=== PATIENT | female | born 1955 | race Two or more races ===

== ENCOUNTER 2024-11-01 10:38 | Inpatient (IN) | payer OTHER ==
[~2024-11-01] VITALS: Ht 162.6 cm; Wt 51.1 kg
--- NOTE | 2024-11-01 11:08 | ED.PDOC ---
History of Present Illness HPI Comments 69-year-old female brought by family states that she has been altered since yesterday. She has been feeling bad for the past one week. Today she is unable to even open her eyes. She has severe dementia. Usually walks with the assistance till yesterday. Since yesterday she is unable to even take a step. She does have a pacemaker in place. Family stated that she is DNR DNI. Want comfort measures. Chief Complaint: Failure to Thrive Time Seen by MD: 11:02 Reviewed Notes: Nurses Notes, Medications, Allergies Allergies: Coded Allergies: Penicillins (Verified Allergy, Severe, 11/01/24) Uncoded Allergies: VINEGAR (Allergy, Severe, 11/01/24) Information Source: Patient Mode of Arrival: Wheelchair Severity: Moderate Timing: Days Duration: Since onset Past Medical History PAST MEDICAL HISTORY: Dementia Surgical History: Denies all surgeries CYCLE COUNTER History: No Pertinent CYCLE COUNTER History Social History Smoker: Non-Smoker Alcohol: Denies ETOH Use Drugs: Denies Drug Use Unable to Obtain due to: Altered Mental Status Physical Exam General Appearance: Moderate Distress, Thin HEENT: Normal ENT Inspection, Pharynx Normal, TMs Normal Neck: Full Range of Motion, Non-Tender, Normal, Normal Inspection Respiratory: Chest Non-Tender, Lungs Clear, No Accessory Muscle Use, No Respiratory Distress, Normal Breath Sounds Cardiovascular: No Edema, No JVD, No Murmur, No Gallop, Normal Peripheral Pulses, Regular Rate/Rhythm Breast Exam: Deferred Gastrointestinal: No Organomegaly, Non Tender, No Pulsatile Mass, Normal Bowel Sounds, Soft Genitalia: Deferred Pelvic: Deferred Rectal: Deferred Extremities: No pedal edema Musculoskeletal : Apperance: Normal Neurologic: Disoriented Cerebellar Function: NOT DONE Reflexes: NOT DONE Skin: Pallor Peripheral Pulses: 3+ Radial (R), 3+ Radial (L) Lymphatic: No Adenopathy Was a procedure done? Was a procedure done?: No Differential Dx Considerations may include: Failure to thrive Electrolyte imbalance X-Ray, Labs, Meds, VS Vital Signs Date Time Temp Pulse Resp B/P (MAP) Pulse Ox O2 Delivery O2 Flow Rate FiO2 11/01/24 12:10 98.0 114 16 133/66 (88) 96 98.0 11/01/24 12:10 114 16 96 Room Air 11/01/24 10:54 95 11/01/24 10:39 98.0 93 15 96 98.0 Lab Test 11/01/24 11:43 Range/Units White Blood Count 8.0 4.4-10.8 10^3/uL Red Blood Count 4.11 4.0-5.20 10^6/uL Hemoglobin 13.5 12.2-16.2 g/dL Hematocrit 38.6 36.0-46.0 % Mean Corpuscular Volume 94.0 80.0-100.0 fL Mean Corpuscular Hemoglobin 33.0 H 28.0-32.0 pg Mean Corpuscular Hemoglobin Concent 35.1 32.0-36.0 g/dL Red Cell Distribution Width 13.0 11.8-14.3 % Platelet Count 197 140-450 10^3/uL Mean Platelet Volume 7.8 6.9-10.8 fL Neutrophils (%) (Auto) 74.0 37.0-80.0 % Lymphocytes (%) (Auto) 17.9 10.0-50.0 % Monocytes (%) (Auto) 7.5 0.0-12.0 % Eosinophils (%) (Auto) 0.1 0.0-7.0 % Basophils (%) (Auto) 0.5 0.0-2.0 % Neutrophils # (Auto) 5.9 1.6-8.6 10 ^3/uL Lymphocytes # (Auto) 1.4 0.4-5.4 10 ^3/uL Monocytes # (Auto) 0.6 0-1.3 10 ^3/uL Eosinophils # (Auto) 0 0-0.8 10 ^3/uL Basophils # (Auto) 0 0-0.2 10 ^3/uL Nucleated Red Blood Cells 0.0 % Prothrombin Time 10.4 9.3-11.8 sec Prothrombin Time INR 0.98 0.9-1.15 Activated Partial Thromboplast Time 24.1 L 24.5-34.5 SEC Sodium Level Pending Potassium Level Pending Chloride Level Pending Carbon Dioxide Level Pending Anion Gap Pending Blood Urea Nitrogen Pending Creatinine Pending Glomerular Filtration Rate Calc Pending BUN/Creatinine Ratio Pending Serum Glucose Pending Lactic Acid Level 2.0 0.4-2.0 mmol/L Calcium Level Pending Total Bilirubin Pending Aspartate Amino Transferase (AST) Pending Alanine Aminotransferase (ALT) Pending Alkaline Phosphatase Pending Troponin I High Sensitivity Pending Total Protein Pending Albumin Pending Patient altered. Dementia. Vitals stable. Chronic condition. Family members do not want anything heroic. DNI DNR. Establish intravenous access. Was given fluids. Sepsis protocol. Family at bedside. Continue monitoring. [place] [id number] Ph: [phone] DIAGNOSTIC IMAGING Diagnostic Imaging Report : [id number] Signed PATIENT: MYLES FERRARO ACCT: [id number] UNIT: [id number] : 1955 LOC: ER ROOM / BED: / AGE / SEX: 69 / F ADM STATUS: REG ER SERVICE 01 ORDERING PHYSICIAN: YARELIS LI MD PROCEDURE(s): CXRP - CHEST PORTABLE REASON: sob ORDER NUMBER(s): [id number], ACCESSION NUMBER(s): [id number] CHEST RADIOGRAPH Indication: sob Technique: Single frontal view of the chest was obtained Comparison: None FINDINGS: Lines and Tubes: Dual lead pacemaker in place with pulse generator over the left chest. Lungs: More[place] Airspace disease right lower lobe versus left hand. Pleura: No effusion. No pneumothorax. Cardiomediastinal contours: Unremarkable Bones: No acute osseous abnormality. IMPRESSION: 1. Superimposed over the lower lung medrano 2. Pacemaker in place HS:Y ATED BY: ADVID RAMOS Jr., DO DICTATED DATE/TIME: 11/01/24 113 SIGNED BY: DAVID RAMOS Jr., SIGNED DATE/TIME: 11/01/24 1133 CC: Time of 1ST Reevaluation: 11:05 Reevaluation 1ST: Unchanged Patient Education/Counseling: Pt Unresponsive Family Education/Counseling: Other (Comfort care) SEPSIS Sepsis Screen Date sepsis recognized/suspect: Nov 01, 2024 Time Sepsis recognized/suspect: 1042 Recent Procedure: No On Antibiotic Therapy: No Respiratory Rate >20: No Heart Rate >90: No Temp<36 C (96.8 F) or >38.3 C: No SBP <90 or MAP <65 mmHG: No New Acute Mental Status Change: No Is the patient on CPAP, BIPAP,: No Physician Orders Electrocardigram (11/01/24 11:00) Comprehensive Metabolic Panel (11/01/24 11:02) PTPTT (11/01/24 11:02) Urinalysis (11/01/24 11:02) Chest Portable (11/01/24 11:02) Accucheck (11/01/24 11:02) Blood Culture (11/01/24 11:02) Lactic Acid W/ Reflex Order (11/01/24 12:00) Cefepime 1gm/ 50ml (Maxipime 1gm/50ml) (11/01/24 14:00) Notify Md If Map <65 Or Bp<90 (11/01/24 11:02) If Map<65 Start Vasopressor (11/01/24 11:02) Sepsis Reassesment After Fluid (11/01/24 12:02) Sodium Chloride 0.9% (11/01/24 11:15) Troponin-I Hs (11/01/24 11:08) Electrocardigram (11/01/24 11:08) Vital Signs Date Time Temp Pulse Resp B/P (MAP) Pulse Ox O2 Delivery O2 Flow Rate FiO2 11/01/24 12:10 98.0 114 16 133/66 (88) 96 98.0 11/01/24 12:10 114 16 96 Room Air 11/01/24 10:54 95 11/01/24 10:39 98.0 93 15 96 98.0 Laboratory Tests Test 11/01/24 11:43 Lactic Acid Level 2.0 mmol/L (0.4-2.0) White Blood Count 8.0 10^3/uL (4.4-10.8) Departure 1 Departure Time of Disposition: 11:06 Impression: Primary Impression: Metabolic encephalopathy Additional Impressions: Sepsis, unspecified organism Qualified Codes: A41.9 - Sepsis, unspecified organism Failure to thrive Qualified Codes: R62.7 - Adult failure to thrive Disposition: ADMITTED INPATIENT Admit to: Med Surg Condition: Guarded Critical Care Note Critical Care Time?: Yes (90 min-critical care time only) Stability Stability form required: No Heart Score Heart Score: Heart Score Response (Comments) Value History Slightly Suspicious 0 EKG Normal 0 Age >65 2 Risk Factors >3 or Hx ASHD 2 Troponin Normal limit 0 Total 4 I personally scribed for YARELIS LI MD ([email or web address]) on 11/01/24 at 12:22. Electronically submitted by Estee Atkinson ([email or web address]). YARELIS LI MD Nov 01, 2024 11:08
--- NOTE | 2024-11-01 11:36 | DVH ---
CHEST RADIOGRAPH Indication: sob Technique: Single frontal view of the chest was obtained Comparison: None FINDINGS: Lines and Tubes: Dual lead pacemaker in place with pulse generator over the left chest. Lungs: Morelia Airspace disease right lower lobe versus left hand. Pleura: No effusion. No pneumothorax. Cardiomediastinal contours: Unremarkable Bones: No acute osseous abnormality. IMPRESSION: 1. Superimposed over the lower lung medrano 2. Pacemaker in place HS:Y
[2024-11-01 12:03] LABS: Hematocrit 38.6 % (36.0-46.0); Hemoglobin 13.5 g/dL (12.2-16.2); Mean Corpuscular Hemoglobin 33.0 pg (28.0-32.0); Mean Corpuscular Volume 94.0 fL (80.0-100.0); Nucleated Red Blood Cells % 0.0 %
[2024-11-01 12:18] LABS: INR 0.98 (0.9-1.15); Partial Thromboplastin Time 24.1 SEC (24.5-34.5); Prothrombin Time 10.4 sec (9.3-11.8)
[2024-11-01 12:20] LABS: Alanine Aminotransferase 37 U/L (7-40); Albumin 4.3 g/dL (3.2-4.8); Alkaline Phosphatase 49 U/L (46-116); Anion Gap 10 (5-15); BUN/Creatinine Ratio 16.5 (10.0-20.0); Blood Urea Nitrogen 15 mg/dL (9-23); Calcium 9.4 mg/dL (8.7-10.4); Carbon Dioxide 28 mmol/L (20-31); Chloride 102 mmol/L (98-107); Potassium 4.0 mmol/L (3.5-5.1); Sodium 140 mmol/L (136-145); Total Protein 6.7 g/dL (5.7-8.2)
[2024-11-01 12:21] LABS: Bilirubin, Total 0.4 mg/dL (0.2-1.0)
[2024-11-01 12:22] LABS: Glucose 205 mg/dL (74-106)
[2024-11-01] MEDS: SODIUM CHLORIDE 0.9% 1,000 ML IV ONE ×2 (12:29→13:28)
[2024-11-01] MEDS: VANCOMYCIN 1GM/200ML PM 200 ML IV ONE (12:32)
[2024-11-01] MEDS: CEFEPIME 1GM/ 50ML 50 ML IV SCH (13:27)
--- NOTE | 2024-11-01 18:42 | DVHHP2 ---
Admitting Diagnosis: Failure to thrive History of Present Illness 69-year-old female brought by family states that she has been altered since yesterday. She has been feeling bad for the past one week. Today she is unable to even open her eyes. She has severe dementia. Usually walks with the assistance till yesterday. Since yesterday she is unable to even take a step. She does have a pacemaker in place. Family stated that she is DNR DNI. Want comfort measures. PAST MEDICAL HISTORY: Dementia Surgical History: Denies all surgeries ELECTRONIC TESTER History: No Pertinent ELECTRONIC TESTER History Social History Smoker: Non-Smoker Alcohol: Denies ETOH Use Drugs: Denies Drug Use Allergies: Coded Allergies: Penicillins (Verified Allergy, Severe, 11/01/24) Uncoded Allergies: VINEGAR (Allergy, Severe, 11/01/24) Current Medications Current Medications Medications (Trade) Dose Ordered Sig/Ronald Route PRN Reason Start Time Stop Time Status Last Admin Cefepime HCl 50 ml @ 12.5 mls/hr Q12H IV 11/01/24 13:00 11/01/24 13:27 Vital Signs Vital Signs Date Time Temp Pulse Resp B/P (MAP) Pulse Ox O2 Delivery O2 Flow Rate FiO2 11/01/24 12:10 98.0 114 16 133/66 (88) 96 98.0 11/01/24 12:10 Room Air Physical Exam 69 years old woman, sitting on wheelchair. Head down. No apparent distress HEENT-atraumatic normocephalic Heart-regular rate and rhythm no with auscultate Abdomen soft, nontender nondistended Musculoskeletal-no edema cyanosis Neuro-asleep, not follow commands does not answer questions. SEPSIS Sepsis Screen Date sepsis recognized/suspect: Nov 01, 2024 Time Sepsis recognized/suspect: 1042 Recent Procedure: No On Antibiotic Therapy: No Respiratory Rate >20: No Heart Rate >90: No Temp<36 C (96.8 F) or >38.3 C: No SBP <90 or MAP <65 mmHG: No New Acute Mental Status Change: No Is the patient on CPAP, BIPAP,: No Physician Orders Electrocardigram (11/01/24 11:00) Urinalysis (11/01/24 11:02) Chest Portable (11/01/24 11:02) Accucheck (11/01/24 11:02) Blood Culture (11/01/24 11:02) Cefepime 1gm/ 50ml (Maxipime 1gm/50ml) (11/01/24 13:00) Notify Md If Map <65 Or Bp<90 (11/01/24 11:02) If Map<65 Start Vasopressor (11/01/24 11:02) Sepsis Reassesment After Fluid (11/01/24 12:02) Electrocardigram (11/01/24 11:08) Vital Signs Date Time Temp Pulse Resp B/P (MAP) Pulse Ox O2 Delivery O2 Flow Rate FiO2 11/01/24 12:10 98.0 114 16 133/66 (88) 96 98.0 11/01/24 12:10 114 16 96 Room Air 11/01/24 10:54 95 11/01/24 10:39 98.0 93 15 96 98.0 Laboratory Tests Test 11/01/24 11:43 Lactic Acid Level 2.0 mmol/L (0.4-2.0) White Blood Count 8.0 10^3/uL (4.4-10.8) Medications Medications Dose Ordered Sig/Ronald Route Start Time Stop Time Status Last Admin Dose Admin Cefepime HCl 50 ml @ 12.5 mls/hr Q12H IV 11/01/24 13:00 11/01/24 13:27 Sodium Chloride 1,000 ml @ 150 mls/hr Q6H40M ONCE IV 11/01/24 11:15 11/01/24 17:54 DC 11/01/24 13:28 Sodium Chloride 1,000 ml @ 1,000 mls/hr Q1H ONCE IV 11/01/24 11:15 11/01/24 12:14 DC 11/01/24 12:29 Vancomycin HCl 200 ml @ 200 mls/hr ONCE ONCE IV 11/01/24 11:15 11/01/24 12:14 DC 11/01/24 12:32 Results Labs Test 11/01/24 11:43 Range/Units White Blood Count 8.0 4.4-10.8 10^3/uL Red Blood Count 4.11 4.0-5.20 10^6/uL Hemoglobin 13.5 12.2-16.2 g/dL Hematocrit 38.6 36.0-46.0 % Mean Corpuscular Volume 94.0 80.0-100.0 fL Mean Corpuscular Hemoglobin 33.0 H 28.0-32.0 pg Mean Corpuscular Hemoglobin Concent 35.1 32.0-36.0 g/dL Red Cell Distribution Width 13.0 11.8-14.3 % Platelet Count 197 140-450 10^3/uL Mean Platelet Volume 7.8 6.9-10.8 fL Neutrophils (%) (Auto) 74.0 37.0-80.0 % Lymphocytes (%) (Auto) 17.9 10.0-50.0 % Monocytes (%) (Auto) 7.5 0.0-12.0 % Eosinophils (%) (Auto) 0.1 0.0-7.0 % Basophils (%) (Auto) 0.5 0.0-2.0 % Neutrophils # (Auto) 5.9 1.6-8.6 10 ^3/uL Lymphocytes # (Auto) 1.4 0.4-5.4 10 ^3/uL Monocytes # (Auto) 0.6 0-1.3 10 ^3/uL Eosinophils # (Auto) 0 0-0.8 10 ^3/uL Basophils # (Auto) 0 0-0.2 10 ^3/uL Nucleated Red Blood Cells 0.0 % Prothrombin Time 10.4 9.3-11.8 sec Prothrombin Time INR 0.98 0.9-1.15 Activated Partial Thromboplast Time 24.1 L 24.5-34.5 SEC Sodium Level 140 136-145 mmol/L Potassium Level 4.0 3.5-5.1 mmol/L Chloride Level 102 98-107 mmol/L Carbon Dioxide Level 28 20-31 mmol/L Anion Gap 10 5-15 Blood Urea Nitrogen 15 9-23 mg/dL Creatinine 0.91 0.550-1.02 mg/dL Glomerular Filtration Rate Calc 67 >90 mL/min BUN/Creatinine Ratio 16.5 10.0-20.0 Serum Glucose 205 H 74-106 mg/dL Lactic Acid Level 2.0 0.4-2.0 mmol/L Calcium Level 9.4 8.7-10.4 mg/dL Total Bilirubin 0.4 0.2-1.0 mg/dL Aspartate Amino Transferase (AST) 38 13-40 U/L Alanine Aminotransferase (ALT) 37 7-40 U/L Alkaline Phosphatase 49 46-116 U/L Troponin I High Sensitivity 3 L </=34 ng/L Total Protein 6.7 5.7-8.2 g/dL Albumin 4.3 3.2-4.8 g/dL Primary Diagnosis severe dementia Failure to thrive Plan Family wants comfort care. Start comfort care protocol No more blood draws case management assistant consult for comfort care DNI/DNR Plan discussed with: Patient Date of Service: Nov 01, 2024 Billing Provider: ALYSSIA APARICIO MD Common Visit Codes: [id number] INP/OBS CARE (MOD) ALYSSIA APARICIO MD Nov 01, 2024 18:42
[2024-11-01] MEDS ORDERED: LORazepam 0.5 MG TAB PO PRN (18:45)
[2024-11-01] MEDS ORDERED: ACETAMINOPHEN 325 MG TAB PO PRN (18:45)
[2024-11-01] MEDS ORDERED: BISACODYL 10 MG RECT SUPP PR PRN (18:45)
[2024-11-01] MEDS ORDERED: ONDANSETRON HCL 4 MG/2 ML VIAL IV PRN (18:45)
[2024-11-01] MEDS ORDERED: FLEET ENEMA(ADULT) 135 ML PR PRN (18:45)
[2024-11-01] MEDS ORDERED: HYDROmorphone HCL 2 MG/ML VL/or syr IV PRN (18:45)
[2024-11-01] MEDS: DOCUSATE SOD 100 MG CAP PO SCH (20:57)
[2024-11-01] MEDS: SODIUM CHLOR 0.9% PF (SALINE LOCK) 10ML VIAL/SYR IV SCH (20:57)
[2024-11-01 22:30] VITALS: BP 105/75; PULSE 90; RESP 15; TEMP 98; O2SAT 94
[2024-11-01 23:04] VITALS: BP 118/43; PULSE 66; RESP 15; TEMP 98.2; O2SAT 98
[2024-11-02] VITALS (7 sets, daily range): BP systolic 100–123; BP diastolic 43–59; PULSE 65–85; RESP 15–18; TEMP 97.7–98.5; O2SAT 96–100
--- NOTE | 2024-11-02 15:02 | DVHPN2 ---
Subjective Patient encephalopathic Reviewed: Care Plan, H&P, Labs, Medications Changes from previous H/P or p: No Changes General: Per HPI Objective Vitals Vital Signs Date Time Temp Pulse Resp B/P (MAP) Pulse Ox O2 Delivery O2 Flow Rate FiO2 11/02/24 12:59 98.5 74 16 122/49 (73) 100 98.5 11/02/24 08:00 Room Air* 0 21 Intake/Output Intake and Output 11/02/24 07:00 Intake Total 0 ml Balance 0 ml Intake Oral 0 ml General Appearance: mild distress, Other (Unable to assess) HEENT: Atraumatic, PERRLA Neck: Carotid Bruits [place] Lungs: Other (Rhonchi in right lower lobe) Cardiovascular: Normal S1, Normal S2 Abdomen: Normal bowel sounds, Soft, No tenderness Musculoskeletal: Normal sensory function, Normal motor function Extremities: No clubbing, No cyanosis, No edema, Normal pulses, Other (Swelling to left hand) Neuro: Other (Unable to assess) Psych/Mental Status: Other (Unable to assess) Medications Current Medications Medications Dose Ordered Sig/Ronald Route Start Time Stop Time Status Last Admin Dose Admin Cefepime HCl 50 ml @ 12.5 mls/hr Q12H IV 11/01/24 13:00 11/01/24 21:39 12.5 MLS/HR Acetaminophen 325 mg Q6HP PRN PO 11/01/24 18:45 Hydromorphone HCl 1 mg Q1HP PRN IV 11/01/24 18:45 Docusate Sodium 100 mg Q12HR PO 11/01/24 22:00 Bisacodyl 10 mg QHSP PRN IL 11/01/24 18:45 Sodium Biphosphate/ Sodium Phosphate 135 ml DAILYP PRN IL 11/01/24 18:45 Ondansetron HCl 4 mg Q4HP PRN IV 11/01/24 18:45 Sodium Chloride 10 ml Q8HR IV 11/01/24 22:00 11/02/24 12:34 10 ML Amlodipine Besylate 5 mg DAILY PO 11/02/24 10:00 Pravastatin Sodium 10 mg HS PO 11/02/24 22:00 Sodium Chloride 1,000 ml @ 75 mls/hr [id number] IV 11/02/24 15:00 UNV Laboratory Results Laboratory Tests 11/01/24 11:43 Microbiology Microbiology Date/Time Source Procedure Growth Status 11/01/24 11:50 Blood Blood Culture - Preliminary NO GROWTH AFTER 24 HOURS OF INCUBATION. Resulted Labs and/or images reviewed: Labs reviewed by me, Image(s) reviewed by me Assessment/Plan Assessment/Plan Impression: -failure to thrive -advanced Alzheimer's disease -rule out rhabdomyolysis -rule out aspiration pneumonitis/pneumonia Plan: -CT scan of head and chest -continue empiric antibiotic therapy -check ESR, CRP, CPK, vitamin-D, B1, thiamine -aspiration precaution -long discussion made with the patient's who was bedside. All questions answered. -code status: DNR Total time spent with patient discussing and formulating plan of care: 35 minutes. Total time spent with patient and family regarding advance care plannin minutes. This medical document was created using an electronic medical record system with bas[employer]ation system. Although this document has been carefully reviewed, there may still be some phonetic and typographical errors. These areas are purely typographical due to imperfections of the software programs, and do not reflect any compromise in the patient's medical care. Plan discussed with: Patient, Other (RN) My Orders Orders - JESSIE RIVERA NP Procedure Category Date Status Time Comprehensive LAB 11/02/24 Logged Metabolic Panel 14:48 Vitamin B1 (Thiamine) LAB 11/02/24 Logged 14:48 Vitamin B12 LAB 11/02/24 Logged 14:48 Vitamin D 25-Hydroxy LAB 11/02/24 Logged D2 + D3 14:48 Sodium Chloride 0.9% PHA 11/02/24 Logged 15:00 C-Reactive Protein LAB 11/02/24 Logged 14:48 Creatine Kinase LAB 11/02/24 Logged 14:48 Erythrocyte LAB 11/02/24 Logged Sedimentation Rate 14:48 Cigarette Seller To Assess ORDERS 11/02/24 Transmitted Pacemaker 14:48 Hemoglobin A1c LAB 11/02/24 Logged 14:[address] 11/02/24 Logged 14:[address] 11/02/24 Logged 14:48 Date of Service: Nov 02, 2024 Billing Provider: JESSIE RIVERA NP Common Visit Codes: [id number] INP/OBS CARE(HIGH) JESSIE RIVERA NP Nov 02, 2024 15:02
[2024-11-02 15:39] LABS: Albumin 4.0 g/dL (3.2-4.8); Anion Gap 8 (5-15); BUN/Creatinine Ratio 21.7 (10.0-20.0); Bilirubin, Total 0.3 mg/dL (0.2-1.0); Blood Urea Nitrogen 18 mg/dL (9-23); Calcium 9.0 mg/dL (8.7-10.4); Carbon Dioxide 30 mmol/L (20-31); Chloride 107 mmol/L (98-107); Potassium 3.7 mmol/L (3.5-5.1); Sodium 145 mmol/L (136-145); Total Protein 6.3 g/dL (5.7-8.2)
[2024-11-02 15:56] LABS: Alanine Aminotransferase 41 U/L (7-40); Alkaline Phosphatase 46 U/L (46-116); Creatine Kinase IFCC 2211 U/L (34-145); Glucose 125 mg/dL (74-106)
[2024-11-02] MEDS: SODIUM CHLORIDE 0.9% 1,000 ML IV SCH (17:01)
--- NOTE | 2024-11-02 17:46 | DVH ---
CT HEAD WITHOUT CONTRAST Indication: aloc EXAM DATE: 11/02/2024 03:24 PM COMPARISON: None TECHNIQUE: CT of the head without intravenous contrast. RADIATION DOSE: CTDIvol: 5.1 mGy, DLP: 1525 mGy*cm FINDINGS: There is no intracranial hemorrhage. There is no extra-axial fluid, mass, mass effect or midline shif t. The ventricles are midline and prominent in size. Basilar cisterns are patent. Moderate to advance d periventricular and subcortical white matter chronic microvascular ischemic changes. Moderate volu me loss Mastoids well pneumatized. Mucosal thickening of the right maxillary sinus.. Imaged portion of the or bits are unremarkable. IMPRESSION: No intracranial hemorrhage or mass effect. Moderate chronic microvascular ischemic changes. Moderate global cerebral volume loss. Prominent ventricular size which can be secondary to underlying cerebral volume loss, normal pressure hydrocephalus. Correlate clinically.
--- NOTE | 2024-11-02 18:41 | DVH ---
Indication: aspiration pna Technique: CT axial images of the chest are obtained without contrast. Coronal and sagittal reformats were obtained. Radiation Dose Information: CTDI volume is 61.38 mGy. Dose-length product is 4.54 mGy*cm Comparison: XY CHEST PORTABLE on DOS: 11/01/24 FINDINGS: Trachea patent. No pneumothorax. No pleural effusion. Left upper lobe ground-glass nodule measuring 6 mm. Heart normal in size. Tiny pericardial effusion. Aortic atherosclerotic disease. No supraclavicular /axillary lymphadenopathy. Marked/ severe gastric distention. Cholelithiasis. No aggressive osseous process. Moderate thoracic degenerative disc disease. Thoracic levocurvature. IMPRESSION: Limited evaluation without contrast. No pulmonary airspace consolidation. 6 mm left upper lobe ground-glass nodule. Recommend follow-up per Fleischner society criteria. Marked/ severe gastric distention, incompletely characterized. Recommend CT abdomen pelvis to evalua te. Cholelithiasis. Other findings as described
[2024-11-02] MEDS: PRAVASTATIN SODIUM 20 MG TAB PO SCH (20:51)
[2024-11-03] VITALS (8 sets, daily range): BP systolic 114–135; BP diastolic 42–87; PULSE 66–87; RESP 16–19; TEMP 97–98.9; O2SAT 96–100
--- NOTE | 2024-11-03 06:35 | ECG ---
[facility] Test Date: 2024-11-01 Test Time: 10:54:55 Pat Name: MYLES FERRARO Department: ED Room: 0250T Gender: F Finisher Plate: JOHNIE : 1955 Requested By: YARELIS LI Order Number: [id number] Reading MD: Epi Burks Measurements Intervals [place] Rate: 95 P: 73 UT: 121 QRS: -58 QRSD: 74 T: 59 QT: 332 QTc: 418 Interpretive Statements Sinus rhythm Consider right atrial enlargement Left anterior fascicular block Borderline low voltage, extremity leads Consider anterior infarct Electronically Signed On 11-09-2024 17:15:05 PDT by Epi Burks Please click the below link to view image of tracing.
[2024-11-03] MEDS: SODIUM CHLORIDE 0.9% 1,000 ML IV SCH (09:00)
[2024-11-03] MEDS: FLEET ENEMA(ADULT) 135 ML PR ONE (09:00)
--- NOTE | 2024-11-03 13:23 | DVHPN2 ---
Subjective Patient encephalopathic Reviewed: Care Plan, H&P, Labs, Medications Changes from previous H/P or p: No Changes General: Per HPI Objective Vitals Vital Signs Date Time Temp Pulse Resp B/P (MAP) Pulse Ox O2 Delivery O2 Flow Rate FiO2 11/03/24 09:30 168/92 11/03/24 05:10 98.2 71 16 99 98.2 11/02/24 20:00 Room Air* 0 21 Intake/Output Intake and Output 11/03/24 07:00 Intake Total 1155 ml Balance 1155 ml Intake Oral 1105 ml IV Total 50 ml # Voids 5 General Appearance: Alert, mild distress, Other (Unable to assess) HEENT: Atraumatic, PERRLA Neck: Carotid Bruits [place] Lungs: Other (Rhonchi in right lower lobe) Cardiovascular: Normal S1, Normal S2 Abdomen: Normal bowel sounds, Soft, No tenderness Musculoskeletal: Normal sensory function, Normal motor function Extremities: No clubbing, No cyanosis, No edema, Normal pulses, Other (Swelling to left hand) Neuro: Other (Unable to assess) Skin: Dry, Intact Psych/Mental Status: Other (Unable to assess) Medications Current Medications Medications Dose Ordered Sig/Ronald Route Start Time Stop Time Status Last Admin Dose Admin Cefepime HCl 50 ml @ 12.5 mls/hr Q12H IV 11/01/24 13:00 11/03/24 00:40 12.5 MLS/HR Acetaminophen 325 mg Q6HP PRN PO 11/01/24 18:45 Hydromorphone HCl 1 mg Q1HP PRN IV 11/01/24 18:45 Docusate Sodium 100 mg Q12HR PO 11/01/24 22:00 11/03/24 09:30 100 MG Bisacodyl 10 mg QHSP PRN MI 11/01/24 18:45 Sodium Biphosphate/ Sodium Phosphate 135 ml DAILYP PRN MI 11/01/24 18:45 Ondansetron HCl 4 mg Q4HP PRN IV 11/01/24 18:45 Sodium Chloride 10 ml Q8HR IV 11/01/24 22:00 11/03/24 06:08 10 ML Amlodipine Besylate 5 mg DAILY PO 11/02/24 10:00 11/03/24 09:30 5 MG Pravastatin Sodium 10 mg HS PO 11/02/24 22:00 Sodium Chloride 1,000 ml @ 100 mls/hr Q10H IV 11/03/24 08:45 Laboratory Results Laboratory Tests 11/01/24 11:43 11/02/24 15:02 Chemistry Test 11/02/24 15:02 Albumin 4.0 g/dL (3.2-4.8) Calcium Level 9.0 mg/dL (8.7-10.4) Total Protein 6.3 g/dL (5.7-8.2) LFT Test 11/02/24 15:02 Alanine Aminotransferase (ALT) 41 U/L (7-40) H Alkaline Phosphatase 46 U/L (46-116) Aspartate Amino Transferase (AST) 72 U/L (13-40) H Total Bilirubin 0.3 mg/dL (0.2-1.0) HgA1c, TSH Test 11/02/24 15:02 Hemoglobin A1c 6.1 % A1C (<5.7) H Microbiology Microbiology Date/Time Source Procedure Growth Status 11/01/24 11:50 Blood Blood Culture - Preliminary NO GROWTH AFTER 48 HOURS OF INCUBATION. Resulted Labs and/or images reviewed: Labs reviewed by me, Image(s) reviewed by me Assessment/Plan Assessment/Plan Impression: -failure to thrive -advanced Alzheimer's disease -rhabdomyolysis -rule out aspiration pneumonitis/pneumonia, ruled out -metabolic encephalopathy Plan: Events: Patient more alert today. -CT scan of head and chest reviewed : Discussed findings with -continue empiric antibiotic therapy -increase IV hydration given rhabdomyolysis -aspiration precaution -long discussion made with the patient's who was bedside. All questions answered. -code status: DNR -social service consultation for discharge planning. Patient's states that he spoke with [facility] who states that patient can qualify for a retirement facility under [facility]. Total time spent with patient discussing and formulating plan of care: 35 minutes. This medical document was created using an electronic medical record system with [employer] system. Although this document has been carefully reviewed, there may still be some phonetic and typographical errors. These areas are purely typographical due to imperfections of the software programs, and do not reflect any compromise in the patient's medical care. Plan discussed with: Patient, Other (RN) My Orders Orders - JESSIE RIVERA MACHINE CEMENTER AND FOLDER Procedure Category Date Status Time Vitamin B1 (Thiamine) LAB 11/02/24 In Process 14:48 Vitamin D 25-Hydroxy LAB 11/02/24 In Process D2 + D3 14:48 Traffic Survey Technician To Assess ORDERS 11/02/24 Transmitted Pacemaker 14:[address] 11/02/24 Resulted 14:[address] 11/02/24 Resulted 14:48 Sodium Chloride 0.9% PHA 11/03/24 In Process 08:45 Date of Service: Nov 03, 2024 Billing Provider: JESSIE RIVERA NP Common Visit Codes: [id number] INP/OBS CARE(HIGH) JESSIE RIVERA NP Nov 03, 2024 13:23
[2024-11-04] VITALS (7 sets, daily range): BP systolic 113–159; BP diastolic 57–95; PULSE 60–90; RESP 16–18; TEMP 98–98.9; O2SAT 96–99
[2024-11-04 07:47] LABS: Potassium 4.0 mmol/L (3.5-5.1); Sodium 140 mmol/L (136-145)
[2024-11-04 07:48] LABS: Anion Gap 10 (5-15); Carbon Dioxide 21 mmol/L (20-31)
[2024-11-04 07:54] LABS: BUN/Creatinine Ratio 30.1 (10.0-20.0); Blood Urea Nitrogen 22 mg/dL (9-23)
[2024-11-04 07:59] LABS: Calcium 8.5 mg/dL (8.7-10.4); Chloride 109 mmol/L (98-107); Creatine Kinase IFCC 1216 U/L (34-145); Glucose 135 mg/dL (74-106)
--- NOTE | 2024-11-04 09:43 | DVHPN2 ---
Subjective Patient encephalopathic Reviewed: Care Plan, H&P, Labs, Medications Changes from previous H/P or p: No Changes General: Per HPI Objective Vitals Vital Signs Date Time Temp Pulse Resp B/P (MAP) Pulse Ox O2 Delivery O2 Flow Rate FiO2 11/04/24 08:00 Room Air* 0 21 11/04/24 05:00 98.0 60 16 136/82 (100) 99 98.0 Intake/Output Intake and Output 11/04/24 07:00 Intake Total 1170 ml Balance 1170 ml Intake Oral 1120 ml IV Total 50 ml # Voids 8 General Appearance: Alert, mild distress, Other (Unable to assess) HEENT: Atraumatic, PERRLA Neck: Carotid [place]its [place] Lungs: Other (Rhonchi in right lower lobe) Cardiovascular: Normal S1, Normal S2 Abdomen: Normal bowel sounds, Soft, No tenderness Musculoskeletal: Normal sensory function, Normal motor function Extremities: No clubbing, No cyanosis, No edema, Normal pulses, Other (Swelling to left hand) Neuro: Other (Unable to assess) Skin: Dry, Intact Psych/Mental Status: Other (Unable to assess) Medications Current Medications Medications Dose Ordered Sig/Ronald Route Start Time Stop Time Status Last Admin Dose Admin Cefepime HCl 50 ml @ 12.5 mls/hr Q12H IV 11/01/24 13:00 11/04/24 00:56 12.5 MLS/HR Acetaminophen 325 mg Q6HP PRN PO 11/01/24 18:45 Hydromorphone HCl 1 mg Q1HP PRN IV 11/01/24 18:45 Docusate Sodium 100 mg Q12HR PO 11/01/24 22:00 11/03/24 21:54 100 MG Bisacodyl 10 mg QHSP PRN [place] 11/01/24 18:45 Sodium Biphosphate/ Sodium Phosphate 135 ml DAILYP PRN [place] 11/01/24 18:45 Ondansetron HCl 4 mg Q4HP PRN IV 11/01/24 18:45 Sodium Chloride 10 ml Q8HR IV 11/01/24 22:00 11/04/24 06:21 10 ML Amlodipine Besylate 5 mg DAILY PO 11/02/24 10:00 11/03/24 09:30 5 MG Pravastatin Sodium 10 mg HS PO 11/02/24 22:00 11/03/24 21:53 10 MG Sodium Chloride 1,000 ml @ 100 mls/hr Q10H IV 11/03/24 08:45 11/03/24 18:20 100 MLS/HR Laboratory Results Laboratory Tests 11/01/24 11:43 11/04/24 06:39 Chemistry Test 11/04/24 06:39 Calcium Level 8.5 mg/dL (8.7-10.4) L Microbiology Microbiology Date/Time Source Procedure Growth Status 11/01/24 11:50 Blood Blood Culture - Preliminary NO GROWTH AFTER 48 HOURS OF INCUBATION. Resulted Labs and/or images reviewed: Labs reviewed by me, Image(s) reviewed by me Assessment/Plan Assessment/Plan Impression: -failure to thrive -advanced Alzheimer's disease -rhabdomyolysis -rule out aspiration pneumonitis/pneumonia, ruled out -metabolic encephalopathy Plan: Events: Patient more alert today. Rhabdomyolysis improving -CT scan of head and chest reviewed : Discussed findings with -continue empiric antibiotic therapy -decrease IV fluids -physical therapy consultation -social service consultation for DC planning Total time spent with patient discussing and formulating plan of care: 35 minutes. This medical document was created using an electronic medical record system with [employer] dictation system. Although this document has been carefully reviewed, there may still be some phonetic and typographical errors. These areas are purely typographical due to imperfections of the software programs, and do not reflect any compromise in the patient's medical care. Plan discussed with: Patient, Spouse, Other (RN) My Orders Orders - JESSIE RIVEAR NP Procedure Category Date Status Time * Outside Physical Damage Appraiser CONS 11/03/24 Transmitted Consult Code Status CODE 11/03/24 Transmitted 13:23 NS PHA 11/04/24 Transmitted 09:45 Pt Request For Service PT 11/04/24 Transmitted 09:38 Date of Service: Nov 04, 2024 Billing Provider: JSESIE RIVERA NP Common Visit Codes: [id number] INP/OBS CARE(HIGH) JESSIE RIVERA NP Nov 04, 2024 09:43
[2024-11-04] MEDS: SODIUM CHLORIDE 0.9% 1,000 ML IV SCH (09:49)
[2024-11-05] VITALS (7 sets, daily range): BP systolic 104–117; BP diastolic 48–68; PULSE 60–74; RESP 14–18; TEMP 97.9–98.1; O2SAT 95–98
--- NOTE | 2024-11-05 13:20 | DVHPN2 ---
Subjective Patient encephalopathic Reviewed: Care Plan, H&P, Labs, Medications Changes from previous H/P or p: No Changes General: Per HPI Objective Vitals Vital Signs Date Time Temp Pulse Resp B/P (MAP) Pulse Ox O2 Delivery O2 Flow Rate FiO2 11/05/24 10:02 116/64 11/05/24 08:30 70 14 98 11/05/24 08:00 Room Air* 0 21 11/05/24 01:00 98.1 98.1 Intake/Output Intake and Output 11/05/24 07:00 Intake Total 905 ml Output Total 4 ml Balance 901 ml Intake Oral 855 ml IV Total 50 ml Output Urine Total 4 ml # Voids 2 # Bowel Movements 2 General Appearance: Alert, mild distress, Other (Unable to assess) HEENT: Atraumatic, PERRLA Neck: Carotid Bruits [place] Lungs: Other (Rhonchi in right lower lobe) Cardiovascular: Normal S1, Normal S2 Abdomen: Normal bowel sounds, Soft, No tenderness Musculoskeletal: Normal sensory function, Normal motor function Extremities: No clubbing, No cyanosis, No edema, Normal pulses, Other (Swelling to left hand) Neuro: Other (Unable to assess) Skin: Dry, Intact Psych/Mental Status: Other (Unable to assess) Medications Current Medications Medications Dose Ordered Sig/Ronald Route Start Time Stop Time Status Last Admin Dose Admin Cefepime HCl 50 ml @ 12.5 mls/hr Q12H IV 11/01/24 13:00 11/05/24 01:47 12.5 MLS/HR Acetaminophen 325 mg Q6HP PRN PO 11/01/24 18:45 Hydromorphone HCl 1 mg Q1HP PRN IV 11/01/24 18:45 Docusate Sodium 100 mg Q12HR PO 11/01/24 22:00 11/05/24 10:01 100 MG Bisacodyl 10 mg QHSP PRN [place] 11/01/24 18:45 Sodium Biphosphate/ Sodium Phosphate 135 ml DAILYP PRN [place] 11/01/24 18:45 Ondansetron HCl 4 mg Q4HP PRN IV 11/01/24 18:45 Sodium Chloride 10 ml Q8HR IV 11/01/24 22:00 11/05/24 05:56 10 ML Amlodipine Besylate 5 mg DAILY PO 11/02/24 10:00 11/05/24 10:02 5 MG Pravastatin Sodium 10 mg HS PO 11/02/24 22:00 11/04/24 23:04 10 MG Sodium Chloride 1,000 ml @ 50 mls/hr Q20H IV 11/04/24 09:45 11/05/24 05:56 50 MLS/HR Laboratory Results Laboratory Tests 11/01/24 11:43 11/04/24 06:39 Microbiology Microbiology Date/Time Source Procedure Growth Status 11/01/24 11:50 Blood Blood Culture - Preliminary NO GROWTH AFTER 72 HOURS OF INCUBATION. Resulted Labs and/or images reviewed: Labs reviewed by me, Image(s) reviewed by me Assessment/Plan Assessment/Plan Impression: -failure to thrive -advanced Alzheimer's disease -rhabdomyolysis -rule out aspiration pneumonitis/pneumonia, ruled out -metabolic encephalopathy Plan: Events: Patient more alert today. Out of bed with physical therapy -CT scan of head and chest reviewed : Discussed findings with -continue empiric antibiotic therapy -decrease IV fluids -physical therapy consultation -plan of care discussed with the patient's has been, time. He is awaiting to hear back from the pace program to have placed in Alzheimer facility in [facility]. Total time spent with patient discussing and formulating plan of care: 35 minutes. This medical document was created using an electronic medical record system with [employer] dictation system. Although this document has been carefully reviewed, there may still be some phonetic and typographical errors. These areas are purely typographical due to imperfections of the software programs, and do not reflect any compromise in the patient's medical care. Plan discussed with: Patient, Spouse, Other (RN) Date of Service: Nov 05, 2024 Billing Provider: JESSIE RIVERA NP Common Visit Codes: [id number] INP/OBS CARE(HIGH) JESSIE RIVERA NP Nov 05, 2024 13:20
[2024-11-05 22:07] LABS: Vitamin D-2 25-Hydroxy <1.0 ng/mL (.); Vitamin D-3 25-Hydroxy 25 ng/mL (.)
[2024-11-06] VITALS (8 sets, daily range): BP systolic 99–121; BP diastolic 49–73; PULSE 64–103; RESP 16–19; TEMP 97.7–98.3; O2SAT 95–100
--- NOTE | 2024-11-06 14:15 | DVHPN2 ---
Subjective Patient encephalopathic Reviewed: Care Plan, H&P, Labs, Medications Changes from previous H/P or p: No Changes General: Per HPI Objective Vitals Vital Signs Date Time Temp Pulse Resp B/P (MAP) Pulse Ox O2 Delivery O2 Flow Rate FiO2 11/06/24 13:00 98.1 64 17 99/49 (66) 100 98.1 11/05/24 20:00 Room Air* 0 21 Intake/Output Intake and Output 11/06/24 07:00 Intake Total 420 ml Balance 420 ml Intake Oral 370 ml IV Total 50 ml # Voids 8 # Bowel Movements 1 General Appearance: Alert, mild distress, Other (Unable to assess) HEENT: Atraumatic, PERRLA Neck: Carotid Bruits [place] Lungs: Other (Rhonchi in right lower lobe) Cardiovascular: Normal S1, Normal S2 Abdomen: Normal bowel sounds, Soft, No tenderness Musculoskeletal: Normal sensory function, Normal motor function Extremities: No clubbing, No cyanosis, No edema, Normal pulses, Other (Swelling to left hand) Neuro: Other (Unable to assess) Skin: Dry, Intact Psych/Mental Status: Other (Unable to assess) Medications Current Medications Medications Dose Ordered Sig/Ronald Route Start Time Stop Time Status Last Admin Dose Admin Cefepime HCl 50 ml @ 12.5 mls/hr Q12H IV 11/01/24 13:00 11/06/24 12:53 12.5 MLS/HR Acetaminophen 325 mg Q6HP PRN PO 11/01/24 18:45 Hydromorphone HCl 1 mg Q1HP PRN IV 11/01/24 18:45 Docusate Sodium 100 mg Q12HR PO 11/01/24 22:00 11/06/24 10:58 100 MG Bisacodyl 10 mg QHSP PRN [place] 11/01/24 18:45 Sodium Biphosphate/ Sodium Phosphate 135 ml DAILYP PRN [place] 11/01/24 18:45 Ondansetron HCl 4 mg Q4HP PRN IV 11/01/24 18:45 Sodium Chloride 10 ml Q8HR IV 11/01/24 22:00 11/06/24 05:54 10 ML Amlodipine Besylate 5 mg DAILY PO 11/02/24 10:00 11/06/24 10:58 5 MG Pravastatin Sodium 10 mg HS PO 11/02/24 22:00 11/05/24 21:59 10 MG Laboratory Results Laboratory Tests 11/01/24 11:43 11/04/24 06:39 Microbiology Microbiology Date/Time Source Procedure Growth Status 11/01/24 11:50 Blood Blood Culture - Final NO GROWTH AFTER 5 DAYS OF INCUBATION. Complete Labs and/or images reviewed: Labs reviewed by me, Image(s) reviewed by me Assessment/Plan Assessment/Plan Impression: -failure to thrive -advanced Alzheimer's disease -rhabdomyolysis -rule out aspiration pneumonitis/pneumonia, ruled out -metabolic encephalopathy Plan: Events: Discussed plan of care with the patient's . Patient currently not ambulating, noted to be her baseline status. Patient is able to stand and bear weight on side of the bed. Neurologically patient has improved. Repeat BMP, CPK, CBC -CT scan of head and chest reviewed : Discussed findings with -continue empiric antibiotic therapy -decrease IV fluids -physical therapy consultation -plan of care discussed with the patient's has been, time. He is awaiting to hear back from the pace program to have placed in Alzheimer facility in [facility]. Total time spent with patient discussing and formulating plan of care: 35 minutes. This medical document was created using an electronic medical record system with [employer] dictation system. Although this document has been carefully reviewed, there may still be some phonetic and typographical errors. These areas are purely typographical due to imperfections of the software programs, and do not reflect any compromise in the patient's medical care. Plan discussed with: Patient, Other (RN) Date of Service: Nov 06, 2024 Billing Provider: JESSIE RIVERA NP Common Visit Codes: [id number] INP/OBS CARE(HIGH) JESSIE RIVERA NP Nov 06, 2024 14:15
[2024-11-06 15:26] LABS: Hematocrit 37.0 % (36.0-46.0); Hemoglobin 12.9 g/dL (12.2-16.2); Mean Corpuscular Hemoglobin 33.0 pg (28.0-32.0); Mean Corpuscular Volume 94.5 fL (80.0-100.0); Nucleated Red Blood Cells % 0.1 %
[2024-11-06 15:31] LABS: Chloride 106 mmol/L (98-107); Potassium 4.1 mmol/L (3.5-5.1); Sodium 141 mmol/L (136-145)
[2024-11-06 15:32] LABS: Anion Gap 8 (5-15); Calcium 9.2 mg/dL (8.7-10.4); Carbon Dioxide 27 mmol/L (20-31)
[2024-11-06 15:37] LABS: BUN/Creatinine Ratio 23.7 (10.0-20.0); Blood Urea Nitrogen 18 mg/dL (9-23); Glucose 137 mg/dL (74-106)
[2024-11-06 15:40] LABS: Creatine Kinase IFCC 308 U/L (34-145)
[2024-11-07] VITALS (8 sets, daily range): BP systolic 103–131; BP diastolic 56–69; PULSE 60–77; RESP 15–18; TEMP 98–98.6; O2SAT 95–100
[2024-11-07 01:07] LABS: Vitamin B1, Whole Blood 115.2 nmol/L (66.5-200.0)
--- NOTE | 2024-11-07 12:11 | DVHPN2 ---
Subjective Patient encephalopathic Reviewed: Care Plan, H&P, Labs, Medications Changes from previous H/P or p: No Changes General: Per HPI Objective Vitals Vital Signs Date Time Temp Pulse Resp B/P (MAP) Pulse Ox O2 Delivery O2 Flow Rate FiO2 11/07/24 09:12 121/64 11/07/24 08:56 98.0 60 16 97 98.0 11/06/24 20:00 Room Air* 0 21 Intake/Output Intake and Output 11/07/24 07:00 Intake Total 1300 ml Balance 1300 ml Intake Oral 600 ml IV Total 700 ml # Voids 9 # Bowel Movements 1 General Appearance: Alert, Cooperative, mild distress, Other (Unable to assess) HEENT: Atraumatic, PERRLA Neck: Carotid Bruits [place] Lungs: Other (Rhonchi in right lower lobe) Cardiovascular: Normal S1, Normal S2 Abdomen: Normal bowel sounds, Soft, No tenderness Musculoskeletal: Normal sensory function, Normal motor function Extremities: No clubbing, No cyanosis, No edema, Normal pulses, Other (Swelling to left hand) Neuro: Other (Unable to assess) Skin: Dry, Intact Psych/Mental Status: Other (Unable to assess) Medications Current Medications Medications Dose Ordered Sig/Ronald Route Start Time Stop Time Status Last Admin Dose Admin Cefepime HCl 50 ml @ 12.5 mls/hr Q12H IV 11/01/24 13:00 11/07/24 00:22 12.5 MLS/HR Acetaminophen 325 mg Q6HP PRN PO 11/01/24 18:45 Hydromorphone HCl 1 mg Q1HP PRN IV 11/01/24 18:45 Docusate Sodium 100 mg Q12HR PO 11/01/24 22:00 11/07/24 09:12 100 MG Bisacodyl 10 mg QHSP PRN [place] 11/01/24 18:45 Sodium Biphosphate/ Sodium Phosphate 135 ml DAILYP PRN [place] 11/01/24 18:45 Ondansetron HCl 4 mg Q4HP PRN IV 11/01/24 18:45 Sodium Chloride 10 ml Q8HR IV 11/01/24 22:00 11/07/24 05:38 10 ML Amlodipine Besylate 5 mg DAILY PO 11/02/24 10:00 11/07/24 09:12 5 MG Pravastatin Sodium 10 mg HS PO 11/02/24 22:00 11/06/24 22:16 10 MG Laboratory Results Laboratory Tests 11/06/24 14:53 Chemistry Test 11/06/24 14:53 Calcium Level 9.2 mg/dL (8.7-10.4) Microbiology Microbiology Date/Time Source Procedure Growth Status 11/01/24 11:50 Blood Blood Culture - Final NO GROWTH AFTER 5 DAYS OF INCUBATION. Complete Labs and/or images reviewed: Labs reviewed by me, Image(s) reviewed by me Assessment/Plan Assessment/Plan Impression: -failure to thrive -advanced Alzheimer's disease -rhabdomyolysis -rule out aspiration pneumonitis/pneumonia, ruled out -metabolic encephalopathy Plan: Events: Patient labs repeated. Rhabdomyolysis resolving. Patient now able to ambulate approximately 4 ft. Long discussion made with the patient's has been. Plans for discharge home once patient is able to ambulate with assistance. -continue empiric antibiotic therapy -stop IV fluid -physical therapy consultation -plan of care discussed with the patient's has been, time. He is awaiting to hear back from the pace program to have placed in Alzheimer facility in [facility]. Total time spent with patient discussing and formulating plan of care: 35 minutes. This medical document was created using an electronic medical record system with [employer] dictation system. Although this document has been carefully reviewed, there may still be some phonetic and typographical errors. These areas are purely typographical due to imperfections of the software programs, and do not reflect any compromise in the patient's medical care. Plan discussed with: Patient, Other (RN) Date of Service: Nov 07, 2024 Billing Provider: JESSIE RIVERA NP Common Visit Codes: [id number] INP/OBS CARE(HIGH) JESSIE RIVERA NP Nov 07, 2024 12:11
[2024-11-07] MEDS: CIPROFLOXACIN HCL 500 MG TAB PO SCH (21:46)
[2024-11-08] VITALS (8 sets, daily range): BP systolic 102–134; BP diastolic 56–84; PULSE 45–97; RESP 16–18; TEMP 97–98.9; O2SAT 95–100
--- NOTE | 2024-11-08 11:17 | DVHPN2 ---
Subjective Patient encephalopathic Reviewed: Care Plan, H&P, Labs, Medications Changes from previous H/P or p: No Changes General: Per HPI Objective Vitals Vital Signs Date Time Temp Pulse Resp B/P (MAP) Pulse Ox O2 Delivery O2 Flow Rate FiO2 11/08/24 10:10 118/74 11/08/24 09:00 97.0 45 16 100 97.0 11/07/24 20:00 Room Air* 0 21 Intake/Output Intake and Output 11/08/24 07:00 Intake Total 700 ml Output Total 400 ml Balance 300 ml Intake Oral 700 ml Output Urine Total 400 ml # Voids 5 General Appearance: Alert, Cooperative, mild distress, Other (Unable to assess) HEENT: Atraumatic, PERRLA Neck: Carotid Bruits [place] Lungs: Other (Rhonchi in right lower lobe) Cardiovascular: Normal S1, Normal S2 Abdomen: Normal bowel sounds, Soft, No tenderness Musculoskeletal: Normal sensory function, Normal motor function Extremities: No clubbing, No cyanosis, No edema, Normal pulses, Other (Swelling to left hand) Neuro: Other (Unable to assess) Skin: Dry, Intact Psych/Mental Status: Other (Unable to assess) Medications Current Medications Medications Dose Ordered Sig/Ronald Route Start Time Stop Time Status Last Admin Dose Admin Acetaminophen 325 mg Q6HP PRN PO 11/01/24 18:45 Hydromorphone HCl 1 mg Q1HP PRN IV 11/01/24 18:45 Docusate Sodium 100 mg Q12HR PO 11/01/24 22:00 11/08/24 10:10 100 MG Bisacodyl 10 mg QHSP PRN [place] 11/01/24 18:45 Sodium Biphosphate/ Sodium Phosphate 135 ml DAILYP PRN [place] 11/01/24 18:45 Ondansetron HCl 4 mg Q4HP PRN IV 11/01/24 18:45 Sodium Chloride 10 ml Q8HR IV 11/01/24 22:00 11/07/24 21:46 10 ML Amlodipine Besylate 5 mg DAILY PO 11/02/24 10:00 11/08/24 10:10 5 MG Pravastatin Sodium 10 mg HS PO 11/02/24 22:00 11/07/24 21:46 10 MG Ciprofloxacin 500 mg Q12HR PO 11/07/24 22:00 11/08/24 10:10 500 MG Laboratory Results Laboratory Tests 11/06/24 14:53 Microbiology Microbiology Date/Time Source Procedure Growth Status 11/01/24 11:50 Blood Blood Culture - Final NO GROWTH AFTER 5 DAYS OF INCUBATION. Complete Labs and/or images reviewed: Labs reviewed by me, Image(s) reviewed by me Assessment/Plan Assessment/Plan Impression: -failure to thrive -advanced Alzheimer's disease -rhabdomyolysis -rule out aspiration pneumonitis/pneumonia, ruled out -metabolic encephalopathy Plan: Events: Patient has improvement with ambulation. Close to baseline ambulation at home. Discussed this with the patient's has been who states that he can not take the patient home at this time. I discussed this case with Marily, window caser. She will speak with the family and provide all options. At this time the patient's is working on Alzheimer's facility in [facility] and has an evaluation set up for tomorrow. -continue empiric antibiotic therapy -stop IV fluid -physical therapy consultation -plan of care discussed with the patient's has been, time. He is awaiting to hear back from the pace program to have placed in Alzheimer facility in [facility]. Total time spent with patient discussing and formulating plan of care: 35 minutes. This medical document was created using an electronic medical record system with [employer] dictation system. Although this document has been carefully reviewed, there may still be some phonetic and typographical errors. These areas are purely typographical due to imperfections of the software programs, and do not reflect any compromise in the patient's medical care. Plan discussed with: Patient, Other (RN) My Orders Orders - JESSIE RIVERA NP Procedure Category Date Status Time Ciprofloxacin Tablet PHA 11/07/24 In Process (Cipro Tablet) 22:00 Cover Wound With Foam REY 11/07/24 In Process Dressing 12:15 Date of Service: Nov 08, 2024 Billing Provider: JESSIE RIVERA NP Common Visit Codes: [id number] INP/OBS CARE(HIGH) JESSIE RVIERA NP Nov 08, 2024 11:17
[2024-11-09] VITALS (8 sets, daily range): BP systolic 103–125; BP diastolic 51–76; PULSE 60–98; RESP 17–20; TEMP 97.2–98.8; O2SAT 95–98
--- NOTE | 2024-11-09 14:56 | DVHPN2 ---
Subjective Patient encephalopathic Reviewed: Care Plan, H&P, Labs, Medications Changes from previous H/P or p: No Changes General: Per HPI Objective Vitals Vital Signs Date Time Temp Pulse Resp B/P (MAP) Pulse Ox O2 Delivery O2 Flow Rate FiO2 11/09/24 09:16 111/66 11/09/24 08:00 Room Air* 0 21 11/09/24 05:00 98.2 63 17 98 98.2 Intake/Output Intake and Output 11/09/24 06:59 Intake Total 1744 ml Balance 1744 ml Intake Oral 1744 ml # Voids 9 General Appearance: Alert, Cooperative, mild distress, Other (Unable to assess) HEENT: Atraumatic, PERRLA Neck: Carotid Bruits [place] Lungs: Other (Rhonchi in right lower lobe) Cardiovascular: Normal S1, Normal S2 Abdomen: Normal bowel sounds, Soft, No tenderness Musculoskeletal: Normal sensory function, Normal motor function Extremities: No clubbing, No cyanosis, No edema, Normal pulses, Other (Swelling to left hand) Neuro: Other (Unable to assess) Skin: Dry, Intact Psych/Mental Status: Other (Unable to assess) Medications Current Medications Medications Dose Ordered Sig/Ronald Route Start Time Stop Time Status Last Admin Dose Admin Acetaminophen 325 mg Q6HP PRN PO 11/01/24 18:45 Hydromorphone HCl 1 mg Q1HP PRN IV 11/01/24 18:45 Docusate Sodium 100 mg Q12HR PO 11/01/24 22:00 11/09/24 09:15 100 MG Bisacodyl 10 mg QHSP PRN [place] 11/01/24 18:45 Sodium Biphosphate/ Sodium Phosphate 135 ml DAILYP PRN [place] 11/01/24 18:45 Ondansetron HCl 4 mg Q4HP PRN IV 11/01/24 18:45 Sodium Chloride 10 ml Q8HR IV 11/01/24 22:00 11/09/24 05:55 10 ML Amlodipine Besylate 5 mg DAILY PO 11/02/24 10:00 11/09/24 09:16 5 MG Pravastatin Sodium 10 mg HS PO 11/02/24 22:00 11/08/24 21:24 10 MG Ciprofloxacin 500 mg Q12HR PO 11/07/24 22:00 11/09/24 09:15 500 MG Laboratory Results Laboratory Tests 11/06/24 14:53 Microbiology Microbiology Date/Time Source Procedure Growth Status 11/01/24 11:50 Blood Blood Culture - Final NO GROWTH AFTER 5 DAYS OF INCUBATION. Complete Labs and/or images reviewed: Labs reviewed by me, Image(s) reviewed by me Assessment/Plan Assessment/Plan Impression: -failure to thrive -advanced Alzheimer's disease -rhabdomyolysis -rule out aspiration pneumonitis/pneumonia, ruled out -metabolic encephalopathy Plan: Events: Social service consultation to assist with DC planning. -continue empiric antibiotic therapy -stop IV fluid -physical therapy consultation -plan of care discussed with the patient's has been, time. He is awaiting to hear back from the pace program to have placed in Alzheimer facility in [facility]. Total time spent with patient discussing and formulating plan of care: 35 minutes. This medical document was created using an electronic medical record system with [employer] dictation system. Although this document has been carefully reviewed, there may still be some phonetic and typographical errors. These areas are purely typographical due to imperfections of the software programs, and do not reflect any compromise in the patient's medical care. Plan discussed with: Patient, Other (RN) Date of Service: Nov 09, 2024 Billing Provider: JESSIE RIVERA NP Common Visit Codes: [id number] INP/OBS CARE(HIGH) JESSIE RIVERA NP Nov 09, 2024 14:56
[2024-11-10 08:00] VITALS: PULSE 60; RESP 20; O2SAT 98
[2024-11-10 09:00] VITALS: BP 137/79; PULSE 60; RESP 19; TEMP 97.7; O2SAT 91
--- NOTE | 2024-11-10 11:15 | DVHPN2 ---
Subjective Patient encephalopathic Reviewed: Care Plan, H&P, Labs, Medications Changes from previous H/P or p: No Changes General: Per HPI Objective Vitals Vital Signs Date Time Temp Pulse Resp B/P (MAP) Pulse Ox O2 Delivery O2 Flow Rate FiO2 11/10/24 10:00 110/51 11/09/24 21:00 98.3 71 20 98 98.3 11/09/24 20:00 Room Air* 0 21 Intake/Output Intake and Output 11/10/24 07:00 Intake Total 550 ml Balance 550 ml Intake Oral 550 ml # Voids 4 # Bowel Movements 1 General Appearance: Alert, Cooperative, mild distress, Other (Unable to assess) HEENT: Atraumatic, PERRLA Neck: Carotid [place] Lungs: Other (Rhonchi in right lower lobe) Cardiovascular: Normal S1, Normal S2 Abdomen: Normal bowel sounds, Soft, No tenderness Musculoskeletal: Normal sensory function, Normal motor function Extremities: No clubbing, No cyanosis, No edema, Normal pulses, Other (Swelling to left hand) Neuro: Other (Unable to assess) Skin: Dry, Intact Psych/Mental Status: Other (Unable to assess) Medications Current Medications Medications Dose Ordered Sig/Ronald Route Start Time Stop Time Status Last Admin Dose Admin Acetaminophen 325 mg Q6HP PRN PO 11/01/24 18:45 Hydromorphone HCl 1 mg Q1HP PRN IV 11/01/24 18:45 Docusate Sodium 100 mg Q12HR PO 11/01/24 22:00 11/10/24 10:39 100 MG Bisacodyl 10 mg QHSP PRN RI 11/01/24 18:45 Sodium Biphosphate/ Sodium Phosphate 135 ml DAILYP PRN RI 11/01/24 18:45 Ondansetron HCl 4 mg Q4HP PRN IV 11/01/24 18:45 Sodium Chloride 10 ml Q8HR IV 11/01/24 22:00 11/10/24 05:43 10 ML Amlodipine Besylate 5 mg DAILY PO 11/02/24 10:00 11/09/24 09:16 5 MG Pravastatin Sodium 10 mg HS PO 11/02/24 22:00 11/09/24 20:57 10 MG Ciprofloxacin 500 mg Q12HR PO 11/07/24 22:00 11/10/24 10:39 500 MG Laboratory Results Laboratory Tests 11/06/24 14:53 Microbiology Microbiology Date/Time Source Procedure Growth Status 11/01/24 11:50 Blood Blood Culture - Final NO GROWTH AFTER 5 DAYS OF INCUBATION. Complete Labs and/or images reviewed: Labs reviewed by me, Image(s) reviewed by me Assessment/Plan Assessment/Plan Impression: -failure to thrive -advanced Alzheimer's disease -rhabdomyolysis -rule out aspiration pneumonitis/pneumonia, ruled out -metabolic encephalopathy Plan: Events: Discharge patient once established hospice -stop antibiotic therapy -physical therapy consultation -aspiration precaution Total time spent with patient discussing and formulating plan of care: 35 minutes. This medical document was created using an electronic medical record system with [employer] dictation system. Although this document has been carefully reviewed, there may still be some phonetic and typographical errors. These areas are purely typographical due to imperfections of the software programs, and do not reflect any compromise in the patient's medical care. 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
[2024-11-10 13:00] VITALS: BP 121/72; PULSE 65; RESP 19; TEMP 97.8; O2SAT 97
[2024-11-10 16:32] VITALS: BP 118/75; PULSE 72; RESP 18; TEMP 97.8; O2SAT 95
[2024-11-10 20:00] VITALS: PULSE 80; RESP 18; O2SAT 96
[2024-11-10 21:00] VITALS: BP 100/57; PULSE 76; RESP 17; TEMP 98; O2SAT 95
[2024-11-11] VITALS (8 sets, daily range): BP systolic 96–128; BP diastolic 53–91; PULSE 60–81; RESP 16–19; TEMP 97.3–98.7; O2SAT 94–97
--- NOTE | 2024-11-11 14:31 | DVHPN2 ---
Subjective Patient encephalopathic Reviewed: Care Plan, H&P, Labs, Medications Changes from previous H/P or p: No Changes General: Per HPI Objective Vitals Vital Signs Date Time Temp Pulse Resp B/P (MAP) Pulse Ox O2 Delivery O2 Flow Rate FiO2 11/11/24 13:00 98.0 81 19 128/91 (103) 96 98.0 11/11/24 08:00 Room Air* 0 21 Intake/Output Intake and Output 11/11/24 07:00 Intake Total 675 ml Balance 675 ml Intake Oral 675 ml # Voids 11 # Bowel Movements 3 General Appearance: Alert, Cooperative, mild distress, Other (Unable to assess) HEENT: Atraumatic, PERRLA Neck: Carotid [place] Lungs: Other (Rhonchi in right lower lobe) Cardiovascular: Normal S1, Normal S2 Abdomen: Normal bowel sounds, Soft, No tenderness Musculoskeletal: Normal sensory function, Normal motor function Extremities: No clubbing, No cyanosis, No edema, Normal pulses, Other (Swelling to left hand) Neuro: Other (Unable to assess) Skin: Dry, Intact Psych/Mental Status: Other (Unable to assess) Medications Current Medications Medications Dose Ordered Sig/Ronald Route Start Time Stop Time Status Last Admin Dose Admin Acetaminophen 325 mg Q6HP PRN PO 11/01/24 18:45 Docusate Sodium 100 mg Q12HR PO 11/01/24 22:00 11/11/24 09:20 100 MG Bisacodyl 10 mg QHSP PRN MD 11/01/24 18:45 Sodium Biphosphate/ Sodium Phosphate 135 ml DAILYP PRN MD 11/01/24 18:45 Ondansetron HCl 4 mg Q4HP PRN IV 11/01/24 18:45 Sodium Chloride 10 ml Q8HR IV 11/01/24 22:00 11/11/24 14:03 10 ML Amlodipine Besylate 5 mg DAILY PO 11/02/24 10:00 11/11/24 09:20 5 MG Pravastatin Sodium 10 mg HS PO 11/02/24 22:00 11/10/24 22:06 10 MG Laboratory Results Laboratory Tests 11/06/24 14:53 Microbiology Microbiology Date/Time Source Procedure Growth Status 11/01/24 11:50 Blood Blood Culture - Final NO GROWTH AFTER 5 DAYS OF INCUBATION. Complete Labs and/or images reviewed: Labs reviewed by me, Image(s) reviewed by me Assessment/Plan Assessment/Plan Impression: -failure to thrive -advanced Alzheimer's disease -rhabdomyolysis -rule out aspiration pneumonitis/pneumonia, ruled out -metabolic encephalopathy Plan: Events: Patient to be discharged to correction facility. Awaiting bed availability. -stop antibiotic therapy -physical therapy consultation -aspiration precaution Total time spent with patient discussing and formulating plan of care: 35 minutes. This medical document was created using an electronic medical record system with [employer] dictation system. Although this document has been carefully reviewed, there may still be some phonetic and typographical errors. These areas are purely typographical due to imperfections of the software programs, and do not reflect any compromise in the patient's medical care. Plan discussed with: Patient, Other (RN) Date of Service: Nov 11, 2024 Billing Provider: JESSIE RIVERA NP Common Visit Codes: [id number] INP/OBS CARE(HIGH) JESSIE RIVERA NP Nov 11, 2024 14:31
[2024-11-12] VITALS (9 sets, daily range): BP systolic 112–144; BP diastolic 56–71; PULSE 59–81; RESP 14–19; TEMP 97.6–98.3; O2SAT 95–99
--- NOTE | 2024-11-12 15:58 | DVHDS2 ---
Discharge Summary Date of Admission Nov 01, 2024 at 18:31 Date of Discharge: Nov 12, 2024 Admitting Diagnosis Failure to thrive Labs/Diagnostic Data: Laboratory Results Test 11/06/24 14:53 11/02/24 15:02 11/01/24 11:43 White Blood Count 5.1 10^3/uL (4.4-10.8) Red Blood Count 3.91 10^6/uL (4.0-5.20) Hemoglobin 12.9 g/dL (12.2-16.2) Hematocrit 37.0 % (36.0-46.0) Mean Corpuscular Volume 94.5 fL (80.0-100.0) Mean Corpuscular Hemoglobin 33.0 pg (28.0-32.0) Mean Corpuscular Hemoglobin Concent 34.9 g/dL (32.0-36.0) Red Cell Distribution Width 13.0 % (11.8-14.3) Platelet Count 237 10^3/uL (140-450) Mean Platelet Volume 7.8 fL (6.9-10.8) Neutrophils (%) (Auto) 60.3 % (37.0-80.0) Lymphocytes (%) (Auto) 30.5 % (10.0-50.0) Monocytes (%) (Auto) 7.8 % (0.0-12.0) Eosinophils (%) (Auto) 0.8 % (0.0-7.0) Basophils (%) (Auto) 0.6 % (0.0-2.0) Neutrophils # (Auto) 3.1 10 ^3/uL (1.6-8.6) Lymphocytes # (Auto) 1.6 10 ^3/uL (0.4-5.4) Monocytes # (Auto) 0.4 10 ^3/uL (0-1.3) Eosinophils # (Auto) 0 10 ^3/uL (0-0.8) Basophils # (Auto) 0 10 ^3/uL (0-0.2) Nucleated Red Blood Cells 0.1 % Sodium Level 141 mmol/L (136-145) Potassium Level 4.1 mmol/L (3.5-5.1) Chloride Level 106 mmol/L (98-107) Carbon Dioxide Level 27 mmol/L (20-31) Anion Gap 8 (5-15) Blood Urea Nitrogen 18 mg/dL (9-23) Creatinine 0.76 mg/dL (0.550-1.02) Glomerular Filtration Rate Calc 84 mL/min (>90) BUN/Creatinine Ratio 23.7 (10.0-20.0) Serum Glucose 137 mg/dL (74-106) Calcium Level 9.2 mg/dL (8.7-10.4) Creatine Kinase 308 U/L (34-145) Erythrocyte Sedimentation Rate 25 mm/hr (0-20) Hemoglobin A1c 6.1 % A1C (<5.7) Total Bilirubin 0.3 mg/dL (0.2-1.0) Aspartate Amino Transferase (AST) 72 U/L (13-40) Alanine Aminotransferase (ALT) 41 U/L (7-40) Alkaline Phosphatase 46 U/L (46-116) C-Reactive Protein High Sensitivity 2.13 mg/dL (<1.0) Total Protein 6.3 g/dL (5.7-8.2) Albumin 4.0 g/dL (3.2-4.8) Vitamin B1 Level 115.2 nmol/L (66.5-200.0) Vitamin B12 Level 314 pg/mL (211-911) Vitamin D 25-Hydroxy 26 ng/mL (.) 25-Hydroxy Vitamin D2 <1.0 ng/mL (.) 25-Hydroxy Vitamin D3 25 ng/mL (.) Prothrombin Time 10.4 sec (9.3-11.8) Prothrombin Time INR 0.98 (0.9-1.15) Activated Partial Thromboplast Time 24.1 SEC (24.5-34.5) Lactic Acid Level 2.0 mmol/L (0.4-2.0) Troponin I High Sensitivity 3 ng/L (</=34) Other Laboratory Tests 11/06/24 14:53 Brief Hx & Hospital Course: History of Present Illness 69-year-old female brought by family states that she has been altered since yesterday. She has been feeling bad for the past one week. Today she is unable to even open her eyes. She has severe dementia. Usually walks with the assistance till yesterday. Since yesterday she is unable to even take a step. She does have a pacemaker in place. Family stated that she is DNR DNI. Want comfort measures. Course of hospitalization: Patient was given IV hydration after being found to have elevated CPK secondary to rhabdomyolysis. According to the patient's , the patient seems to be over medicated for her Alzheimer's disease and has been bed-bound. Apparently, he is able to assist her to walk to the bathroom. Patient's CPK was noted to be 2211. Patient was also noted to have he was clinical she was made with the patient's who states he is unable to care for her at home. He has been attempting to place her in a Alzheimer facility in a [facility] program. Apparently this process will take several weeks. Patient will be discharged to longterm facility once bed is available. Physical examination General: Alert and Oriented x3. No acute distress. Well-nourished. Eyes: EOMI. Anicteric. HENT: Moist mucous membranes. Lungs: Clear to auscultation bilaterally. No accessory muscle use. Cardiovascular: Regular rate and rhythm. No murmur. No JVD. Abdomen: Soft, non-tender and non-distended. No palpable masses. Extremities: No edema. Non-tender. Skin: No rashes or lesions. Warm. Neurologic: No focal neurological deficits. CN II-XII grossly intact, but not individually tested. Psychiatric: Cooperative. Appropriate mood and affect. Total time spent with patient discussing and formulating plan of care: 35 minutes. This medical document was created using an electronic medical record system with [employer] dictation system. Although this document has been carefully reviewed, there may still be some phonetic and typographical errors. These areas are purely typographical due to imperfections of the software programs, and do not reflect any compromise in the patient's medical care. Condition at Discharge: Poor Final Diagnosis/Problems List Rhabdomyolosis Secondary diagnosis: -failure to thrive -advanced Alzheimer's disease -rhabdomyolysis -rule out aspiration pneumonitis/pneumonia, ruled out -metabolic encephalopathy Discharge Disposition: [facility] Facility Discharge Instruct/Medications Diet: Regular Activity: No Restrictions, As Tolerated Follow Up/Referral: Per accepting provider Medications: Refer to Medication Reconciliation form 36 Discharge Statement: "Patient was advised to return to the ER or call 911 if any headaches, dizziness, shortness of breath, chest pain, abdominal pain, bleeding, fevers, or worsening of medical condition. Patient was counseled about treatment plan, medications, possible side effects, patientverbalized understanding. All questions were answered to the best of my ability. This discharge took greater then 30 minutes in planning, reviewing documentation, counseling the patient, and discussing with other team members." ASSESSMENT ASSESSMENT Assessment Rhabdomyolosis Date of Service: Nov 12, 2024 Billing Provider: JESSIE RIVERA NP Common Visit Codes: [id number] DISCH DAY >30min JESSIE RIVERA NP Nov 12, 2024 15:58
[2024-11-13 01:00] VITALS: BP 124/66; PULSE 66; RESP 18; TEMP 98; O2SAT 95
[2024-11-13 05:00] VITALS: BP 113/62; PULSE 64; RESP 18; TEMP 97.8; O2SAT 96
[2024-11-13 08:00] VITALS: PULSE 71
[2024-11-13 08:15] VITALS: PULSE 78; RESP 20; O2SAT 96
[2024-11-13 09:00] VITALS: BP 148/78; PULSE 78; RESP 24; TEMP 98; O2SAT 91
--- NOTE | 2024-11-13 10:07 | DVHPN2 ---
Subjective Patient encephalopathic Reviewed: Care Plan, H&P, Labs, Medications Changes from previous H/P or p: No Changes General: Per HPI Objective Vitals Vital Signs Date Time Temp Pulse Resp B/P (MAP) Pulse Ox O2 Delivery O2 Flow Rate FiO2 11/13/24 05:00 97.8 64 18 113/62 (79) 96 97.8 11/12/24 20:00 Room Air* 0 21 Intake/Output Intake and Output 11/13/24 07:00 Intake Total 1395 ml Balance 1395 ml Intake Oral 1395 ml # Voids 7 # Bowel Movements 2 General Appearance: Alert, Cooperative, mild distress, Other (Unable to assess) HEENT: Atraumatic, PERRLA Neck: Carotid [place] Lungs: Other (Rhonchi in right lower lobe) Cardiovascular: Normal S1, Normal S2 Abdomen: Normal bowel sounds, Soft, No tenderness Musculoskeletal: Normal sensory function, Normal motor function Extremities: No clubbing, No cyanosis, No edema, Normal pulses, Other (Swelling to left hand) Neuro: Other (Unable to assess) Skin: Dry, Intact Psych/Mental Status: Other (Unable to assess) Medications Current Medications Medications Dose Ordered Sig/Ronald Route Start Time Stop Time Status Last Admin Dose Admin Acetaminophen 325 mg Q6HP PRN PO 11/01/24 18:45 Docusate Sodium 100 mg Q12HR PO 11/01/24 22:00 11/12/24 22:34 100 MG Bisacodyl 10 mg QHSP PRN MO 11/01/24 18:45 Sodium Biphosphate/ Sodium Phosphate 135 ml DAILYP PRN MO 11/01/24 18:45 Ondansetron HCl 4 mg Q4HP PRN IV 11/01/24 18:45 Sodium Chloride 10 ml Q8HR IV 11/01/24 22:00 11/13/24 05:24 10 ML Amlodipine Besylate 5 mg DAILY PO 11/02/24 10:00 11/12/24 10:29 5 MG Pravastatin Sodium 10 mg HS PO 11/02/24 22:00 11/12/24 22:34 10 MG Laboratory Results Laboratory Tests 11/06/24 14:53 Microbiology Microbiology Date/Time Source Procedure Growth Status 11/01/24 11:50 Blood Blood Culture - Final NO GROWTH AFTER 5 DAYS OF INCUBATION. Complete Labs and/or images reviewed: Labs reviewed by me, Image(s) reviewed by me Assessment/Plan Assessment/Plan Impression: -failure to thrive -advanced Alzheimer's disease -rhabdomyolysis -rule out aspiration pneumonitis/pneumonia, ruled out -metabolic encephalopathy Plan: Events: Patient to be discharged to group home facility. Awaiting bed availability. -stop antibiotic therapy -physical therapy consultation -aspiration precaution Total time spent with patient discussing and formulating plan of care: 35 minutes. This medical document was created using an electronic medical record system with [employer] dictation system. Although this document has been carefully reviewed, there may still be some phonetic and typographical errors. These areas are purely typographical due to imperfections of the software programs, and do not reflect any compromise in the patient's medical care. Plan discussed with: Patient, Other (RN) My Orders Orders - JESSIE RIVERA NP Procedure Category Date Status Time Discharge DISCHARGE 11/12/24 Transmitted 15:13 Date of Service: Nov 13, 2024 Billing Provider: JESSIE RIVERA NP Common Visit Codes: [id number] INP/OBS CARE(HIGH) JESSIE RIVERA NP Nov 13, 2024 10:07
[2024-11-13 13:00] VITALS: BP 136/77; PULSE 82; RESP 22; TEMP 98.1; O2SAT 97
== END 2024-11-13 14:25 | DRG 557 ==
LOC: ER 10:38 → OVERFLOW 18:31 → TELE-EAST 23:06 → EAST 11-02 23:43 → TELE-EAST 11-05 19:39
PROVIDERS: ADMIT Nurse Practitioner Acute Care; ATTEND Nurse Practitioner Acute Care
DX: M62.82 Rhabdomyolysis (principal); G93.41 Metabolic encephalopathy; R62.7 Adult failure to thrive; G30.9 Alzheimer's disease, unspecified; Z66 Do not resuscitate; F02.C0 Dementia in other diseases classified elsewhere, severe, without behavioral disturbance, psychotic disturbance, mood disturbance, and anxiety; Z51.5 Encounter for palliative care; Z95.0 Presence of cardiac pacemaker; Z88.0 Allergy status to penicillin; Z74.01 Bed confinement status; R74.8 Abnormal levels of other serum enzymes
CPT/HCPCS: 36415; 70450; 71045; 71250; 80048; 80053; 82306; 82550; 82607; 82962; 83036; 83605; 84425; 84484; 85025; 85610; 85652; 85730; 86141; 87040; 93005; 96361; 96365; 97110; 97116; 97163; 99291; 99292; G0378